=== PATIENT | female | born 1970 | race African-American/Black ===

== ENCOUNTER 2020-08-27 16:42 | Outpatient (REF) | payer MEDICARE, MEDICAID, SELFPAY ==
--- NOTE | 2020-08-27 16:46 | XR_ITS ---
EXAMINATION: XR RIBS, LEFT CLINICAL INFORMATION: Chest pain COMPARISON: None TECHNIQUE: Frontal view chest and 3 views left ribs are obtained for a total of 4 views. FINDINGS: There is no visible rib fracture or rib destructive process. The lungs are clear. There is no pneumothorax, pleural reaction, airspace elevation, or effusion. The heart is normal in size. The costophrenic sulci are clear. The hilar and mediastinal contours and bony structures are unremarkable. XR/XR ribs LT min 3V w CXR1V IMPRESSION: Unremarkable examination.
== END 2020-08-27 16:43 | disposition home or self-care (01) ==
LOC: HO.HMGCX 16:42
PROVIDERS: Visit Provider Nurse Practitioner Family
DX: R07.89 Other chest pain (principal)
CPT/HCPCS: 71101

== ENCOUNTER 2021-01-08 09:48 | Outpatient (REF) | payer MEDICARE, MEDICAID, SELFPAY ==
--- NOTE | ~2021-01-08 | XR_ITS ---
EXAMINATION: RIGHT SHOULDER AND RIGHT HAND/WRIST CLINICAL INFORMATION: Pain COMPARISON: None TECHNIQUE: 3 views right hand and wrist. 3 views right shoulder FINDINGS: RIGHT SHOULDER: There is no visible acute fracture, dislocation or subluxation. The soft tissues are normal. RIGHT HAND/WRIST: There is no visible acute fracture, dislocation or subluxation. The PIP, DIP and MCP joints are normal. The soft tissues are normal. XR/XR hand RT min 3V IMPRESSION: Unremarkable right shoulder exam. Unremarkable right hand and wrist exam.
--- NOTE | ~2021-01-08 | XR_ITS ---
EXAMINATION: RIGHT SHOULDER AND RIGHT HAND/WRIST CLINICAL INFORMATION: Pain COMPARISON: None TECHNIQUE: 3 views right hand and wrist. 3 views right shoulder FINDINGS: RIGHT SHOULDER: There is no visible acute fracture, dislocation or subluxation. The soft tissues are normal. RIGHT HAND/WRIST: There is no visible acute fracture, dislocation or subluxation. The PIP, DIP and MCP joints are normal. The soft tissues are normal. XR/XR shoulder RT min 2V IMPRESSION: Unremarkable right shoulder exam. Unremarkable right hand and wrist exam.
[2021-01-08 11:18] LABS: MANUAL DIFF FLAG NO
[2021-01-08 11:29] LABS: Prothrombin Time 12.3 SEC (10.8-13.0)
[2021-01-08 11:30] LABS: Basophils Absolute Auto 0.1 X10*3/uL (0.0-0.2); Basophils Percent Auto 0.9 % (0-2); Eosinophils Absolute Auto 0.6 X10*3/uL (0.0-0.4); Hematocrit 42.8 % (37-47); Hemoglobin 14.8 g/dl (12.0-16.0); Imm Gran Abs Auto 0.02 X10*3/uL (0.00-0.03); Imm Gran Pct Auto 0.2 % (0.0-0.4); Lymphocytes Absolute Auto 1.7 X10*3/uL (1.2-4.9); Lymphocytes Percent Auto 21.3 % (20-40); Mean Corpuscular HGB Conc 34.6 g/dl (31.0-35.0); Mean Corpuscular Hemoglobin 33.6 pg (27.0-33.0); Mean Corpuscular Volume 97.1 fL (80-98); Monocytes Absolute Auto 0.6 X10*3/uL (0.1-1.2); Monocytes Percent Auto 6.8 % (2-11); Neutrophils Absolute Auto 5.1 X10*3/uL (2.0-8.3); Neutrophils Percent Auto 63.8 % (45-73); Platelet Count 238 X10*3/uL (160-400); Red Blood Count 4.41 X10*6/uL (4.20-5.50); Red Cell Distribution Width 12.3 % (11.0-16.0)
[2021-01-08 11:31] LABS: Partial Thromboplastin Time 38.2 SEC (24.1-38.0)
[2021-01-11 03:47] LABS: HBc Num1 0.12 S/CO (0.00-0.79); HBsAGNum1 0.18 S/CO (0.00-0.99); Hepatitis B Core Antibody Nonreactive (Nonreactive); Hepatitis B Surface Antigen Negative (Negative); ~HepC Num1 0.07 S/CO (0.00-0.79); ~Hepatitis C Antibody Nonreactive (Nonreactive)
[2021-01-11 03:55] LABS: HBS Num1 81.51 mIU/mL (0-7.99); HIV AB/AG Nonreactive (Nonreactive); HIV Num 1 0.07 S/CO (0.00-0.99); ~Hepatitis B Surface Antibody REACTIVE (Nonreactive)
[2021-01-13 07:22] LABS: Hepatitis A Antibody IgM 0.18 Index (0-0.79); ~Hepatitis A Antibody IgM Nonreactive (Nonreactive)
== END 2021-01-08 09:49 | disposition home or self-care (01) ==
LOC: HO.HMGCX 09:48
PROVIDERS: PCP Internal Medicine; Visit Provider Hospitalist
DX: M25.511 Pain in right shoulder (principal); M79.641 Pain in right hand; Z11.3 Encounter for screening for infections with a predominantly sexual mode of transmission
CPT/HCPCS: 36415; 73030; 73130; 85025; 85610; 85730; 86704; 86706; 86709; 86803; 87340; 87389

== ENCOUNTER 2021-09-27 08:07 | Outpatient (REF) | payer MEDICARE, MEDICAID, SELFPAY ==
[2021-09-27 11:37] LABS: Hematocrit 46.4 % (37.0-47.0); Hemoglobin 15.4 g/dl (12.0-16.0); Mean Corpuscular HGB Conc 33.2 g/dl (31.0-35.0); Mean Corpuscular Hemoglobin 33.3 pg (27.0-33.0); Mean Corpuscular Volume 100.4 fL (80.0-98.0); Mean Platelet Volume 10.8 fL (9.4-12.3); Platelet Count 246 X10*3/uL (160-400); Red Blood Count 4.62 X10*6/uL (4.20-5.50); Red Cell Distribution Width 12.6 % (11.0-16.0)
[2021-09-27 12:03] LABS: Alanine Aminotransferase 13 U/L (0-31); Albumin Level 4.4 g/dL (3.5-5.0); Alkaline Phosphatase 117 U/L (39-117); Anion Gap 11 (12-20); Aspartate Amino Transferase 18 U/L (5-31); Bilirubin Total 0.5 mg/dL (0.0-1.0); Blood Urea Nitrogen 13 mg/dL (9-16); Calcium 9.9 mg/dL (8.4-10.2); Carbon Dioxide 30 mmol/L (22-29); Chloride 102 mmol/L (96-108); Cholesterol 209 mg/dL; Estimated Glomerular Filt Rate > 60; Glucose Fasting 124 mg/dL (60-99); HDL Cholesterol 63 mg/dL; LDL Cholesterol Calculated 134 mg/dl; Potassium 4.4 mmol/L (3.3-5.1); Sodium 139 mmol/L (135-145); Total Protein 7.3 g/dL (6.5-8.0); Triglycerides 60 mg/dL
[2021-09-27 12:13] LABS: TSH reflex Free T4 0.65 uIU/mL (0.32-4.0)
== END 2021-09-27 08:08 | disposition home or self-care (01) ==
LOC: HO.LAB 08:07
PROVIDERS: Absent Provider Surgery; PCP Internal Medicine; Visit Provider Internal Medicine
DX: Z00.00 Encounter for general adult medical examination without abnormal findings (principal)
CPT/HCPCS: 36415; 80053; 80061; 84443; 85027

== ENCOUNTER 2021-10-06 15:24 | Outpatient (REF) | payer MEDICARE, MEDICAID, SELFPAY ==
--- NOTE | ~2021-10-06 | XR_ITS ---
EXAMINATION: XR HAND, RIGHT CLINICAL INFORMATION: M79.641 - Pain in right hand COMPARISON: None TECHNIQUE: PA, lateral, and oblique views of the right hand. FINDINGS: Normal bony mineralization. Mild negative ulnar variance. Punctate corticated ossicle at tip ulnar styloid. There is no acute or healing fracture, dislocation, or destructive process. No focal joint narrowing or erosive changes. XR/XR hand RT 2V IMPRESSION: No fracture, dislocation, or arthropathy.
== END 2021-10-06 15:25 | disposition home or self-care (01) ==
LOC: HO.XRAY 15:24
PROVIDERS: PCP Internal Medicine; Visit Provider Internal Medicine
DX: M79.641 Pain in right hand (principal)
CPT/HCPCS: 73120

== ENCOUNTER 2024-02-12 09:32 | Outpatient (AMB) | payer MEDICARE, MEDICAID, SELFPAY ==
--- OUTSIDE RECORDS SUMMARY | 2024-02-12 09:33 | XMS_ITS | Continuity of Care Document ---
Author Organization [facility] ter Address [address] [place] [address]- Care Team Providers Care Musical Instruments Assembler Name Role Phone Emma Wick MD Primary Care Physician Encounter [facility] [place] Date(s): 11/27/21 - 11/28/[address] [address]- Encounter Diagnosis Thumb pain(Final) - 11/28/21 ACL (anterior cruciate ligament) rupture(Final) - 11/28/21 Discharge Disposition: A-D/C Home Attending Physician: Alexandria Wild MD Admitting Physician: Alexandria Wild MD Referring Physician: Not on Staff, Referring MD Allergies, Adverse Reactions, Alerts Substance Reaction Severity Status aspirin rash Active Valtrex rash Active Latex rash Active NSAIDs Active Immunizations Given and Recorded Vaccine Date Status Refusal Reason Measles/Mumps/Rubella Virus Vaccine 1 02/14/08 Giv en Measles/Mumps/Rubella Virus Vaccine 10/02/07 Given 1Admin Note: mmr#2 Medications Albuterol/Ipratropium Inhaler Refills 0, Maintenance, 01/27/17 15:43:27 Start Date: 01/27/17 Status: Ordered Marijuana Marijuana, Refills 0, Maintenance, 02/05/19 12:44:11 EDT, Compound Start Date: 02/05/19 Status: Ordered Oxycodone = 5 mg, By Mouth, Every 4 hours, PRN Pain , Moderate, 0 Refills, Maintenance, 12/14/20 8:28:00 EDT,Partial fill upon patient request if the prescription is for a schedule II opioid drug. Start Date: 12/14/20 Status: Ordered Symbicort 80mcg/4.5mcg Inhaler 2, puffs, Inhalation, 2 times a day, Refills 0, Maintenance, 01/27/17 15:43:46 Start Date: 01/27/17 Status: Ordered Problem List Condition Effective Dates Status Health Status Inform ant Anxiety(Confirmed) Active Asthma(Confirmed) Active Asthma(Confirmed) Active Cannabis use, uncomplicated(Confirmed) Active HLD (hyperlipidemia)(Confirmed) Active Nicotine dependence(Confirmed) Active OCD (obsessive compulsive disorder)(Confirmed) Active PTSD (post-traumatic stress disorder)(Confirmed) Active Depression, major, recurrent(Confirmed) Active 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 Pain primarily in joints of thumb. Also, pain in right knee x 3 days; no known traumatic injury.; Reason:Pain; with Pain; Clinical Question(s): Fracture; Special Instructions: This is a protocol film and r adiologist should call any findings to the Charge Nurse COMPARISON: None. FINDINGS: There is no evidence of acute or healing fracture, dislocation or bone lesion. No arthritic changes. No osteochondral defects or intra-articular loose bodies. Small suprapatellar joint effusion. Surgical clips superior medial to knee. IMPRESSION: No acute osseous abnormality. Small suprapatellar joint effusion. WSN: [id number] Ordering Physician: Jacquelyn Diaz Dictated By: Juliano Peralta MD Dictated Date/Time: 11/27/21 8:39 pm Reviewed By: Juliano Peralta MD Signed By: Juliano Peralta MD Signed Date/Time: 11/27/21 8:39 pm Transcribed By: NIVIA Transcribed Date/Time: 11/27/21 8:38 pm * Exam Date Time Procedure Performing Provider Status 11/27/21 8:20 PM Hand Min 3 Views Right Aarti Siegel Auth (Verified) Notes: (Hand Min 3 Views Right) Reason For Exam: with Pain;Pain RESULT: Hand Min 3 Views Right Hand Min 3 Views Right CLINICAL INDICATION: Hx of Present Illness: Patient reports right hand pain x 3 months; no known traumatic injury. Pain primarily in joints of thumb. Also, pain in right knee x 3 days; no known traumatic injury.; Reason: Pain; with Pain; Clinical Question(s): Fracture; Special Instructions: This renu protocol film and radiologist should call any findings to the Charge Nurse COMPARISONS: None TECHNIQUE: AP, lateral and oblique views of the right hand were obtained. FINDINGS: There is no fracture or dislocation. Normal radiocarpal alignment is maintained. Carpal joint spaces and bone contours are normal. MCP and IP joint spaces are maintained. No periarticular calcifications or erosions. No retained radiodense foreign body. IMPRESSION: No abnormalities are identified. No fracture or dislocation. No arthritic changes. WSN: [id number] Ordering Physician: Jacquelyn Diaz Dictated By: Efrain Tenorio MD Dictated Date/Time: 11/27/21 8:39 pm Reviewed By: Efrain Tenorio MD Signed By: Efrain Tenorio MD Signed Date/Time: 11/27/21 8:39 pm Transcribed By: NIVIA Transcribed Date/Time: 11/27/21 8:38 pm Vital Signs Most recent to oldest [Reference Range]: 1 2 3 Weight 57 kg (11/27/21 7:16 PM) Oxygen Saturation [94-100 %] 100 % (11/28/21 2:42 AM) 99 % (11/28/21 12:36 AM) 100 % (11/27/21 10:30 PM) Pulse Rate [55-90 bpm] 79 bpm (11/28/21 2:42 AM) 92 bpm *H* (11/28/21 12:36 AM) 95 bpm *H* (11/27/21 10:30 PM) Blood Pressure [90-138/55-84 mm Hg] 137/86mm Hg (11/28/21 2:42 AM) 134/88mm Hg (11/28/21 12:36 AM) 135/70mm Hg (11/27/21 10:30 PM) Respiratory Rate [16-30 br/min] 16 br/min (11/27/21 7:16 PM) Temperature [96.8-100.4 DegF] 97.7 DegF (11/28/21 2:42 AM) 97.7 DegF (11/28/21 12:36 AM) 97.9 DegF (11/27/21 10:30 PM) Mode of Delivery (Oxygen) Room air (11/28/21 12:36 AM) Room air (11/27/21 10:30 PM) Room air (11/27/21 8:30 PM) Blood pressure sites Arm, left (11/28/21 2:42 AM) Arm, right (11/28/21 12:36 AM) Arm, right (11/27/21 10:30 PM) Temperature Route Oral (11/28/21 2:42 AM) Oral (11/28/21 12:36 AM) Oral (11/27/21 10:30 PM) Dry Weight 57 kg (11/27/21 7:16 PM) Social History Social History Type Response Smoking Status Current every day ramu dennis entered on: 11/20/17 Sex Medical Equipment Implanted Date:02/09/17Target Site:Unknown Description Quantity MRI Company Model GRAFT BONE BMP INFUSE MEDIUM - MTRN ([id number]) 1 [employer] Unknown WHIT:No Information Assigning Authority: FDA
--- OUTSIDE RECORDS SUMMARY | 2024-02-12 09:33 | XMS_ITS | Continuity of Care Document ---
Author Organization [facility] ter Address [address] [place] [address]- Care Team Providers Care Nursing Specialist Name Role Phone Emma Wick MD Primary Care Physician [phone] Encounter [facility] [place] Date(s): 10/28/21 - 10/28/[address] [address]- Encounter Diagnosis Pharyngitis(Final) - 10/28/21 Bilateral conjunctivitis(Final) - 10/28/21 Discharge Disposition: A-D/C Home Attending Physician: Griselda Rivas MD Admitting Physician: Griselda Rivas MD Referring Physician: Not on Staff, Referring MD Allergies, Adverse Reactions, Alerts Substance Reaction Severity Status aspirin rash Active Valtrex rash Active Latex rash Active Immunizations Given and Recorded Vaccine Date Status Refusal Reason Measles/Mumps/Rubella Virus Vaccine 1 02/14/08 Giv en Measles/Mumps/Rubella Virus Vaccine 10/02/07 Given 1Admin Note: mmr#2 Medications Albuterol/Ipratropium Inhaler Refills 0, Maintenance, 01/27/17 15:43:27 Start Date: 01/27/17 Status: Ordered erythromycin 0.5% ophthalmic ointment 0.5 inches, Eyes, Both, 4 times a day, for 5 days, # 3.5 Gm, 0 Refills, Acute 11/02/21 5:45:00 EDT,10/28/21 5:45:00 EDT, Ophth Ointment, Partial fill upon patient request if the prescription is for a schedule II opioid drug. Start Date: 10/28/21 Stop Date: 11/02/21 Status: Ordered Marijuana Marijuana, Refills 0, Maintenance, [...] mptom disorder with predominant pain(Confirmed) Active Results Orders for Microbiology Reports Name Date Group A Strep Screen and Culture 10/28/21 Microbiology Reports TEST:Group A Strep Screen and Culture STATUS:Unauthenticated BODY SITE: SOURCE:THROAT COLLECTED DATE/TIME:10/28/21 4:21 AM Group A Strep Screen and Culture SPECIMEN DESCRIPTION : THROAT SWAB SPECIAL REQUESTS : NONE DIRECT EXAM : RAPID GROUP A RESULT IS NEGATIVE, REFER TO CULTURE RESULT. 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 LUNGS AND PLEURA: Clear lungs. Normal pulmonary vascularity. No pleural effusion. No pneumothorax. HEART, MEDIASTINUM AND SHANE: Heart is normal in size. Normal mediastinal and hilar contour. BONES AND SOFT TISSUES: No acute abnormality. There are surgical clips in the right upper quadrant. IMPRESSION: No evidence of acute abnormality. WSN: [id number] Ordering Physician: Rosalino Carter Dictated By: Efrain Lowery MD Dictated Date/Time: 10/28/21 7:38 am Reviewed By: Efrain Lowery MD Signed By: Efrain Lowery MD Signed Date/Time: 10/28/21 7:38 am Transcribed By: CSZayra Transcribed Date/Time: 10/28/21 7:37 am Vital Signs Most recent to oldest [Reference Range]: 1 2 3 Oxygen Saturation [94-100 %] 97 % (10/28/21 6:57 AM) 96 % (10/28/21 3:38 AM) 98 % (10/28/21 1:59 AM) Pulse Rate [55-90 bpm] 88 bpm (10/28/21 6:57 AM) 94 bpm *H* (10/28/21 3:38 AM) 124 bpm *H* (10/28/21 1:59 AM) Blood Pressure [90-138/55-84 mm Hg] 99/72mm Hg (10/28/21 6:57 AM) 119/69mm Hg (10/28/21 3:38 AM) 150/98mm Hg *H* (10/28/21 1:59 AM) Respiratory Rate [16-30 br/min] 16 br/min (10/28/21 6:57 AM) 20 br/min (10/28/21 3:38 AM) 20 br/min (10/28/21 1:59 AM) Temperature [96.8-100.4 DegF] 97.9 DegF (10/28/21 3:38 AM) 97.4 DegF (10/28/21 1:59 AM) Mode of Delivery (Oxygen) Room air (10/28/21 6:57 AM) Room air (10/28/21 3:38 AM) Room air (10/28/21 1:59 AM) Blood pressure sites Arm, left (10/28/21 3:38 AM) Arm, right (10/28/21 1:59 AM) Temperature Route Oral (10/28/21 3:38 AM) Oral (10/28/21 1:59 AM) Social History Social History Type Response Smoking Status Current every day ramu dennis entered on: 11/20/17 Sex Medical Equipment Implanted Date:02/09/17Target Site:Unknown Description Quantity MRI Company Model GRAFT BONE BMP INFUSE MEDIUM - MTRN ([id number]) 1 [employer] Unknown WHIT:No Information Assigning Authority: FDA
--- OUTSIDE RECORDS SUMMARY | 2024-02-12 09:33 | XMS_ITS | Continuity of Care Document ---
Author Organization [facility] ter Address [address] [place] [address]- Care Team Providers Care Cow Trimmer Name Role Phone Emma Wick MD Primary Care Physician [phone] [id number] - 02/06/[address] [address]- Discharge Disposition: A-D/C Walkout Attending Physician: Not on Staff, Attending MD Admitting Physician: Not on Staff, Admitting MD Referring Physician: Not on Staff, Referring [...] sy mptom disorder with predominant pain(Confirmed) Active Vital Signs Most recent to oldest [Reference Range]: 1 Oxygen Saturation [94-100 %] 98 % (02/06/21 6:50 AM) Pulse Rate [55-90 bpm] 107 bpm *H* (02/06/21 6:50 AM) Blood Pressure [90-138/55-84 mm Hg] 130/ 76mm Hg (02/06/21 6:50 AM) Respiratory Rate [16-30 br/min] 20 br/mi n (02/06/21 6:50 AM) Temperature [96.8-100.4 DegF] 98.8 DegF (02/06/21 6:50 AM) Mode of Delivery (Oxygen) Room air (02/06/21 6:50 AM) Blood pressure sites Arm, left (02/06/21 6:50 AM) Temperature Route Oral (02/06/21 6:50 AM) Social History Social History Type Response Smoking Status Current every day ramu dennis entered on: 11/20/17 Sex Medical Equipment Implanted Date:02/09/17Target Site:Unknown Description Quantity MRI Company Model GRAFT BONE BMP INFUSE MEDIUM - MTRN ([id number]) 1 [employer] Unknown WHIT:No Information Assigning Authority: FDA
--- OUTSIDE RECORDS SUMMARY | 2024-02-12 09:34 | XMS_ITS | Continuity of Care Document ---
Author Organization [facility] ter Address [address] [place] [address]- Care Team Providers Care Product Responsibility Liaison Name Role Phone Emma Wick MD Primary Care Physician Encounter [facility] [place] Date(s): 03/07/22 - 03/07/[address] [address]- Discharge Disposition: A-D/C Home Attending Physician: Josep Melendrez DO Admitting Physician: Josep Melendrez DO Referring Physician: Not on Staff, Referring MD [...] opioid drug. Start Date: 12/14/20 Status: Ordered oxyCODONE 5 mg oral tablet 5 mg, Tablet, By Mouth, Once, Routine, 03/07/22 12:00:00 EDT, Stop date 03/07/22 12:00:00 EDT Start Date: 03/07/22 Stop Date: 03/07/22 Status: Completed Symbicort 80mcg/4.5mcg Inhaler 2, puffs, Inhalation, 2 [...] Exam Date Time Procedure Performing Provider Status 03/07/22 11:57 AM Wrist Comp Min 3 Views Right Do , Larry ; Auth (Verified) Notes: (Wrist Comp Min 3 Views Right) Reason For Exam: with Pain;Trauma RESULT: Wrist Comp Min 3 Views Right Examination: Right wrist performed on 03/07/2022. History: Hx of Present Illness: pt c o lower back pain, right knee pain and bilateral wrist pain, sp mechanical trip and fall, pt denies lightheadedness dizziness prior to fall, denies hitting head denies loc. no deformities noted to wrists, hx lower back surgery; Reason: Trauma; with Pain; Clinical Question(s): Fracture Findings: Frontal, oblique, lateral, and scaphoid views of the right wrist are submitted. No fractures or dislocations are demonstrated. The soft tissues are unremarkable. IMPRESSION: There is no acute osseous abnormality. WSN: [id number] Ordering Physician: Josep Melendrez Dictated By: Jie Sykes MD Dictated Date/Time: 03/07/22 12:04 p Reviewed By: Jie Sykes MD Signed By: Jie Sykes MD Signed Date/Time: 03/07/22 12:04 pm Transcribed By: NIVIA Transcribed Date/Time: 03/07/22 12:04 pm * Exam Date Time Procedure Performing Provider Status 03/07/22 11:57 AM Wrist Comp Min 3 Views Left Do , Larry; Auth (Verified) Notes: (Wrist Comp Min 3 Views Left) Reason For Exam: with Pain;Trauma RESULT: Wrist Comp Min 3 Views Left Examination: Left wrist performed on 03/07/2022. History: Hx of Present Illness: pt c o lower back pain, right knee pain and bilateral wrist pain, sp mechanical trip and fall, pt denies lightheadedness dizziness prior to fall, denies hitting head denies loc. no deformities noted to wrists, hx lower back surgery; Reason: Trauma; with Pain; Clinical Question(s): Fracture Findings: Frontal, oblique, lateral, and scaphoid views of the left wrist are submitted. No fractures or dislocations are demonstrated. Soft tissue swelling is noted. IMPRESSION: Soft tissue swelling. There is no acute osseous abnormality. WSN: [id number] Ordering Physician: Josep Melendrez Dictated By: Jie Sykes MD Dictated Date/Time: 03/07/22 12:03 p Reviewed By: Jie Sykes MD Signed By: Jie Sykes MD Signed Date/Time: 03/07/22 12:03 pm Transcribed By: NIVIA Transcribed Date/Time: 03/07/22 12:02 pm * Exam Date Time Procedure Performing Provider Status 03/07/22 11:57 AM Knee 3 Views Right Do , Larry; Auth ( Verified) Notes: (Knee 3 Views Right) Reason For Exam: with Pain;Trauma RESULT: Knee 3 Views Right Examination: Right knee performed on 03/07/2022. History: Hx of Present Illness: pt c o lower back pain, right knee pain and bilateral wrist pain, sp mechanical trip and fall, pt denies lightheadedness dizziness prior to fall, denies hitting head denies loc. no deformities noted to wrists, hx lower back surgery; Reason: Trauma; with Pain; Clinical Question(s): Fracture; Special Instructions: Patella ([place] View) Findings: Frontal, lateral, and sunrise patellar views of the right knee are compared to a prior study dated 11/27/2021. No fractures or dislocations are demonstrated. There is no joint effusion. IMPRESSION: There is no acute osseous abnormality. WSN: [id number] Ordering Physician: Josep Melendrez Dictated By: Jie Sykes MD Dictated Date/Time: 03/07/22 11:59 a Reviewed By: Jie Sykes MD Signed By: Jie Sykes MD Signed Date/Time: 03/07/22 11:59 am Transcribed By: NIVIA Transcribed Date/Time: 03/07/22 11:58 am Vital Signs Most recent to oldest [Reference Range]: 1 2 Height 160 cm (03/07/22 9:44 AM) Weight 54.5 kg (03/07/22 9:44 AM) Oxygen Saturation [94-100 %] 98 % (03/07/22 9:44 AM) Pulse Rate [55-90 bpm] 100 bpm *H* (03/07/22 9:44 AM) Body Mass Index [18.5-24.99] 21.29 (03/07/22 9:44 AM) Blood Pressure [90-138/55-84 mm Hg] 149/ 90mm Hg *H* (03/07/22 9:44 AM) Respiratory Rate [16-30 br/min] 15 br/mi n *L* (03/07/22 11:10 AM) 16 br/min (03/07/22 9:44 AM) Temperature [96.8-100.4 DegF] 99.1 DegF (03/07/22 9:44 AM) Mode of Delivery (Oxygen) Room air (03/07/22 9:44 AM) Temperature Route Oral (03/07/22 9:44 AM) Weight Obtained Via Patient/family state d (03/07/22 9:44 AM) Social History Social History Type Response Smoking Status Current every day ramu dennis entered on: 11/20/17 Sex Medical Equipment Implanted Date:02/09/17Target Site:Unknown Description Quantity MRI Company Model GRAFT BONE BMP INFUSE MEDIUM - MTRN ([id number]) 1 [employer] Unknown WHIT:No Information Assigning Authority: FDA
--- OUTSIDE RECORDS SUMMARY | 2024-02-12 09:34 | XMS_ITS | Continuity of Care Document ---
Author Organization [facility] ter Address [address] [place] [address]- Care Team Providers Care Valve Repairer Reclamation Name Role Phone Emma Wick MD Primary Care Physician [place] [facility] [place] - 05/26/[address] [address] Attending Physician: Eunice Parmar MD Allergies, Adverse Reactions, Alerts Substance Reaction [...] Date: 01/27/17 Status: Ordered Problem List Condition Confirmation Course Effective Dates Status H ealth Status Informant Anxiety Confirmed Active Asthma Confirmed Active Asthma Confirmed Active Cannabis use, uncomplicated Confirmed Active HLD (hyperlipidemia) Confirmed Active Nicotine dependence Confirmed Active OCD (obsessive compulsive disorder) Confirmed Active PTSD (post-traumatic stress disorder) Confirmed Active Depression, major, recurrent Confirmed Active 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 Confirmed Active Social History Social History Type Response Smoking Status Current every day ramu dennis entered on: 11/20/17 Sex Implantable Device List Procedure Provider Procedure Date Device Type Site Fusion Lumbar Anterior Unknown 02/09/17 Unknown Un known Device Identifier Serial Number Lot or Batch Number Manufacturing Date Expiration Date Distinct Identification Code MRI Safety Implantable Status Assigning Authority Unknown [id number] AAB Unknown 04/29/18 Unknown Unknown Active Unknown Patient Care team information Personnel Name: Emma Wick MD Address: Address: [address] [place], [place] [address]
--- OUTSIDE RECORDS SUMMARY | 2024-02-12 09:34 | XMS_ITS | Continuity of Care Document ---
Author Organization [facility] ter Address [address] [place] [address]- Care Team Providers Care Intelligence Officer Basic Name Role Phone Emma Wick MD Primary Care Physician Encounter [facility] [place] [facility] R [id number] Date(s): 08/03/22 - 09/25/[address] [address] Attending Physician: Neville Haq MD Allergies, Adverse Reactions, Alerts Substance Reaction Severity Status acetaminophen Skin rash Active aspirin rash Active Valtrex rash Active Latex rash Active NSAIDs Active Immunizations Given and Recorded Vaccine Date Status Refusal Reason Measles/Mumps/Rubella Virus Vaccine 1 02/14/08 Giv en Measles/Mumps/Rubella Virus Vaccine 10/02/07 Given 1Admin Note: mmr#2 Medications Albuterol/Ipratropium Inhaler Refills 0, Maintenance, 01/27/17 15:43:27 Start Date: 01/27/17 Status: Ordered naproxen 500 mg oral tablet 1 tablet = 500 mg, By Mouth, 0 Refills, Maintenance, 07/04/22 14:48:00 EST, Partial fill upon patient request if the prescription is for a schedule II opioid drug. Start Date: 07/04/22 Status: Ordered Symbicort 80mcg/4.5mcg Inhaler 2, puffs, [...] MRI Safety Implantable Status Assigning Authority Unknown [id number] AAB Unknown 04/29/18 Unknown Unknown Active Unknown Patient Care team information Care Team Personnel Name: Emma Wick MD Position: [facility] Physician (General Medicine) Member Role: PCP Address: Address: [address] Name: Malgorzata Islas RN Position: [facility] RN Member Role: Primary Care Nurse Care Team Related Persons Name: KANWAL FERREIRA Address: home [address] [place] [address] Name: DIANE VELEZ Address: home [address] [address]
--- NOTE | 2024-02-12 09:51 | AM.OFFWIN_ITS ---
Intake Vital Signs 02/12/24 09:54 Height 5 ft 3 in Weight 149 lb 6 oz BMI 26.5 BP 122/70 Blood Pressure Location Lt brachial Position Sitting Pulse 91 Pulse Source Pulse Oximeter Temp 98 F Temp Source Oral Pulse Oximetry (%) 99 Oxygen Delivery Method Room Air Intake Visit Reasons: EP shoulder/?Dislocation Intake Note: Pt is here today for Rt shoulder pain. pt states she cracked her neck 4 M ago and felt a pop and is unable to lift rt arm. Patient Tobacco Use Status: Never used Tobacco Allergies aspirin [ASPIRIN] Allergy (Unknown, Verified 02/12/24 09:55) HIVES latex [LATEX] Allergy (Unknown, Verified 02/12/24 09:55) HIVES valacyclovir [Valtrex] Allergy (Unknown, Verified 02/12/24 09:55) Unknown Aspir-81 Allergy (Unknown, Uncoded 02/12/24 09:55) Unknown Latex Allergy (Unknown, Uncoded 02/12/24 09:55) Unknown latex Allergy (Unknown, Uncoded 02/12/24 09:55) Unknown Do you need a note to return to daycare/school/sports/work: No HPI HPI Comments History of Present Illness Details Patient presents to the walk-in today for sick visit Complaining of right shoulder pain x4 months States has been taking [id number] medications with some improvement Pain with movement and tender to palpation [facility] Medical History (Updated 02/12/24 @ 10:51 by Emma Baeza APRN, CENTRAL OFFICE INSPECTOR) Annual physical exam Mild asthma Palmoplantar pustulosis Sciatica Bipolar disorder Lumbar spinal stenosis Surgical History H/O colonoscopy Family History Father No problems noted. Mother No problems noted. Social History Patient Tobacco Use Status: Never used Tobacco Review of Systems Const All systems reviewed & are unremarkable except as noted in HPI and below Physical Exam Vital Signs: Last Vital Signs Temp 98 F 02/12/24 09:54 Pulse 91 02/12/24 09:54 BP 122/70 02/12/24 09:54 Pulse Ox 99 02/12/24 09:54 Oxygen Delivery Method Room Air 02/12/24 09:54 BMI result Body Mass Index 26.5 General: awake, alert, oriented. Answers questions appropriately. Fully engaged in examination. Skin: warm, dry, intact HEENT: Normocephalic. Hearing intact. Cardiac: External chest normal in appearance. Respiratory: No cough, audible wheezing or stridor. Abdomen: without gross distension. MS: No obvious swelling or deformities. Right shoulder: No pain with cross body reach. Pain with overhead and behind the back reach. Negative empty can. Pain with internal external rotation. Neurological: Oriented to person, place, time and situation. Thought process intact. No gait abnormalities appreciated. Psychiatric: Appropriate mood and affect. Good judgment and insight. Results Reviewed Results Reviewed: Right shoulder x-ray ordered and independently reviewed: No fracture dislocation Assessment & Plan Assessment & Plan (1) Right shoulder pain: Code(s): M25.511 - Pain in right shoulder Qualifiers: Chronicity: acute Qualified Code(s): M25.511 - Pain in right shoulder (2) Painful arc syndrome of right shoulder: Code(s): M75.101 - Unspecified rotator cuff tear or rupture of right shoulder, not specified as traumatic Plan X-ray right shoulder ordered and independently reviewed: No fracture or dislocation Follow-up with [facility]. She is a current patient there and does not require referral Naproxen 375 mg p.o. b.i.d. as needed. Patient advised on cautions for use. Do not take with any other nonsteroidal anti-inflammatory medications Follow up with PCP or return here for any new or worsening symptoms Orders: Orders XR shoulder RT min 2V Today M25.511 - Pain in right shoulder Medications: New naproxen 375 mg PO BID PRN 30 tabs 0RF pain Coding Level of Care Code Est Pt Level 4 (58996) Diagnoses Acute pain of right shoulder M25.511 Chronicity: acute Painful arc syndrome of right shoulder M75.101
[2024-02-12 09:54] VITALS: BP 122/70; PULSE 91; TEMP 36.6; O2SAT 99; BMI 26.5
== END 2024-02-12 10:31 | disposition home or self-care (01) ==
PROVIDERS: PCP Internal Medicine; Visit Provider Registered Nurse Emergency
DX: M25.511 Pain in right shoulder (principal); M75.101 Unspecified rotator cuff tear or rupture of right shoulder, not specified as traumatic
CPT/HCPCS: 99214

== ENCOUNTER 2024-02-12 10:29 | Outpatient (REF) | payer MEDICARE, MEDICAID, SELFPAY ==
--- NOTE | ~2024-02-12 | XR_ITS ---
EXAMINATION: XR SHOULDER, RIGHT CLINICAL INFORMATION: Pain in the right shoulder COMPARISON: 01/08/2021 TECHNIQUE: 3 views of of the right shoulder. FINDINGS: The humeral head is well positioned over the intact glenoid. Glenohumeral joint space is normal: no arthritic deformity, fracture or subluxation. No calcium deposition within rotator cuff tendons. There is a 0.6 cm subcortical cyst of the superolateral humeral head. No suspicious-appearing bone lesions. Acromioclavicular joint is normal. The subacromial space is normal. There are no osteophytes projecting from the undersurface of the acromioclavicular joint. No hook-shaped acromion, os acromiale or subacromial enthesophyte. No osseous findings that would predispose to a subacromial impingement disorder. The right lung is normal. XR/XR shoulder RT min 2V IMPRESSION: * No acute abnormality. No fracture or malalignment at the right shoulder. * No evidence of calcific tendinitis. * There is a subcortical cyst of the superolateral humeral head. Note that in some patients, subcortical cystic changes can be associated with rotator cuff tendinopathy.
== END 2024-02-12 10:30 | disposition home or self-care (01) ==
LOC: HO.HMGCX 10:29
PROVIDERS: PCP Internal Medicine; Visit Provider Registered Nurse Emergency
DX: M25.511 Pain in right shoulder (principal)
CPT/HCPCS: 73030

== ENCOUNTER 2024-03-05 13:13 | Outpatient (AMB) | payer MEDICARE, MEDICAID, SELFPAY ==
[2024-03-05 13:15] VITALS: BP 122/74; PULSE 92; O2SAT 98; BMI 26.6
--- NOTE | 2024-03-05 13:15 | A.OFFPC_ITS ---
Vital Signs 03/05/24 13:15 Height 5 ft 3 in Weight 150 lb BMI 26.6 BP 122/74 Blood Pressure Location Rt brachial Position Sitting Pulse 92 Pulse Source Pulse Oximeter Pulse Oximetry (%) 98 Oxygen Delivery Method Room Air Intake Visit Reasons: Annual PE/Discuss labs Intake Note: Pt is here today for PE. Allergies aspirin [ASPIRIN] Allergy (Unknown, Verified 03/05/24 13:27) HIVES latex [LATEX] Allergy (Unknown, Verified 03/05/24 13:27) HIVES valacyclovir [Valtrex] Allergy (Unknown, Verified 03/05/24 13:27) Unknown Aspir-81 Allergy (Unknown, Uncoded 03/05/24 13:27) Unknown Latex Allergy (Unknown, Uncoded 03/05/24 13:27) Unknown latex Allergy (Unknown, Uncoded 03/05/24 13:27) Unknown Medication List - Last Reconciled 03/05/24 by Emma Wick MD naproxen 375 mg PO BID PRN Tobacco use date assessed: 03/05/24 Dental Screening Dental Screen Date: 03/05/24 Did you have a dental visit in the last 12 months?: No Did you have a dental problem in the last 6 months where you did not have access to dental care?: No Was dental information given to patient?: Patient declined HPI Annual PE/Discuss labs HPI Details Patient presents for physical [facility] Medical History Annual physical exam Mild asthma Palmoplantar pustulosis Sciatica Bipolar disorder Lumbar spinal stenosis Surgical History Hx of right knee surgery H/O colonoscopy Family History Father No problems noted. Mother No problems noted. Mother Diabetes Breast cancer Social History Housing: Apartment Patient Tobacco Use Status: Current someday Tobacco user Tobacco use type: Cigarette e-Cigarette/Vaping Use: Never Used service: No Current occupational status: disabled Cognitive needs: No Hearing needs: No Vision needs: No Questionnaire PHQ-9 Over the last 2 weeks, how often have you been bothered by any of the following problems? 1. Little interest or pleasure in doing things: several days 2. Feeling down, depressed, or hopeless: several days 3. Trouble falling or staying asleep, or sleeping too much: several days 4. Feeling tired or having little energy: several days 5. Poor appetite or overeating: more than half the days 6. Feeling bad about yourself - or that you are a failure or have let yourself or your family down: several days 7. Trouble concentrating on things, such as reading the newspaper or watching television: several days 8. Moving or speaking so slowly that other people could have noticed. Or the opposite - being so fidgety or restless that you have been moving around a lot more than usual: several days 9. Thoughts that you would be better off or of hurting yourself in some way: not at all Total score: 9 Depression Screening Interpretation: Negative Depression Screening Done: Yes Source: Developed by Drs. Winston Mclaughlin, Sonia Cast, Kojo Clement and colleagues, with an educational prabhjot from [employer]. Thrive Questionnaire Date Thrive assessed: 03/05/24 I am a: Patient What is your living situation today?: I choose not to answer this question Within the past 12 months, did the food you bought not last and you didn't have the money to get more?: Often true Within the past 12 months, did you worry whether your food would run out before you got money to buy more?: Often true Do you have trouble paying for medicines?: I choose not to answer this question Do you have trouble getting transportation to medical appointments?: Yes Do you have trouble paying your heating and electricity bill?: I choose not to answer this question Do you have trouble taking care of your child, family member or friend?: I choose not to answer this question Do you have trouble with day-to-day activities such as bathing, preparing meals, shopping, managing finances, etc.?: Yes Are you currently unemployed and looking for a job?: No Are you interested in more education?: No Please select the resources that you would like help with: Housing/Halfway, Food, Transportation and Care for elder or disabled Currently or been in a relationship where the following occur: I choose not to answer THRIVE Score: 3 AUDIT C Alcohol Use Questionnaire (AUDIT-C) 1. How often do you have a drink containing alcohol?: Never 3. How often do you have six or more drinks on one occasion?: Never Total Score: 0 LEEROY-7 AMB Questionnaire LEEROY-7 Date LEEROY - 7 assessed: 03/05/24 Feeling nervous, anxious, or on edge: 1 = Several days Not being able to stop or control worryin = Several days Worrying too much about different things: 1 = Several days Trouble relaxin = Several days Being so restless that it is hard to sit still: 0 = Not at all Becoming easily annoyed or irritable: 1 = Several days Feeling afraid as if something awful might happen: 1 = Several days Total LEEROY-7 score (0-4 normal; 5-9 mild; 10-14 moderate; 15-21 severe): 6 Source: Developed by Drs. Winston Mclaughlin, Sonia Cast, Kojo Clement and colleagues, with an educational prabhjot from [employer]. Review of Systems Const All systems reviewed & are unremarkable except as noted in HPI and below Eyes Reports no additional complaints ENT Reports no additional complaints Card Reports no additional complaints Resp Reports no additional complaints GI Reports no additional complaints Reports no additional complaints Physical exam (Primary Care) Vital Signs: Last Vital Signs Pulse 92 03/05/24 13:15 BP 122/74 03/05/24 13:15 Pulse Ox 98 03/05/24 13:15 Oxygen Delivery Method Room Air 03/05/24 13:15 BMI result Body Mass Index 26.6 Tobacco/Smoking Status: Tobacco use Status Tobacco use date assessed 03/05/24 03/05/24 13:32 Patient Tobacco Use Status Current someday Tobacco 03/05/24 13:32 Tobacco use type Cigarette 03/05/24 13:32 e-Cigarette/Vaping Use Never Used 03/05/24 13:32 PHQ-9: PHQ-9 Score PHQ-9: Total score 9 03/05/24 13:32 Depression Screening Interpretation: Negative Thrive Assessment: Date of Thrive Assessment Date Thrive assessed 03/05/24 03/05/24 13:32 Currently or been in a relationship where the following occur: I choose not to answer Const General: no acute distress HENMT Head: Yes normal to inspection Ears: hearing grossly normal bilaterally Face and sinus: Yes normal facial exam Mouth: Normal oral and palatal mucosa present Throat: Yes posterior oropharynx normal Eyes General: appearance normal, both eyes and all related structures Neck Neck: Yes supple Resp Effort & Inspection: normal respiratory effort Auscultation: clear to auscultation bilaterally Cardio Rhythm: regular rhythm Heart sounds: S1 normal heart sound present and S2 normal heart sound present GI Inspection: Yes normal to inspection Palpation (GI): Soft to palpation Percussion: Yes normal to percussion Auscultation: normal bowel sounds Assessment and Plan Assessment & Plan (1) Annual physical exam: Code(s): Z00.00 - Encounter for general adult medical examination without abnormal findings Plan: Well-balanced diet regular physical activity discussed with the patient. She will return for fasting blood work. 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 Panel Fast Today Z00.00 - Encounter for general adult medical examination without abnormal findings Complete Blood Count Auto Diff Today Z00.00 - Encounter for general adult medical examination without abnormal findings TSH reflex Free T4 Today Z00.00 - Encounter for general adult medical examination without abnormal findings HIV Ab/Ag Today Z00.00 - Encounter for general adult medical examination without abnormal findings Lipid Panel Today Z00.00 - Encounter for general adult medical examination without abnormal findings Hepatitis B,C Profile Today Z00.00 - Encounter for general adult medical examination without abnormal findings UA w Microscopic Today Z00.00 - Encounter for general adult medical examination without abnormal findings Coding Level of Care Code Est Pt Prev Care 40-64y(08470) Diagnoses Annual physical exam Z00.00
== END 2024-03-05 15:01 | disposition home or self-care (01) ==
PROVIDERS: PCP Internal Medicine; Visit Provider Internal Medicine
DX: Z00.00 Encounter for general adult medical examination without abnormal findings (principal)
CPT/HCPCS: 99396

== ENCOUNTER 2024-03-08 10:03 | Outpatient (REF) | payer MEDICARE, MEDICAID, SELFPAY ==
[2024-03-08 13:05] LABS: Appearance Urine Cloudy; Color Urine Yellow; Glucose Urine UA Negative (Negative); Leukocyte Esterase Urine Trace (Negative); Nitrite Urine Negative (Negative); PH 5.5 (5.0-9.0); UMIC TRIGGER UA YES; Urine Blood Negative (Negative); Urine Ketones Negative (Negative); Urine Protein Negative (Neg-Trace)
[2024-03-08 13:10] LABS: MANUAL DIFF FLAG NO
[2024-03-08 13:11] LABS: Bacteria Urine 4+ (None Seen); RBC Urine 0-2 /HPF (0-2)
[2024-03-08 13:14] LABS: Basophils Absolute Auto 0.1 X10*3/uL (0.0-0.2); Basophils Percent Auto 1.6 % (0-2); Eosinophils Percent Auto 14.2 % (0-4); Hematocrit 43.5 % (37.0-47.0); Hemoglobin 14.8 g/dl (12.0-16.0); Imm Gran Abs Auto 0.05 X10*3/uL (0.00-0.03); Imm Gran Pct Auto 0.7 % (0.0-0.4); Lymphocytes Absolute Auto 1.9 X10*3/uL (1.2-4.9); Lymphocytes Percent Auto 27.4 % (20-40); Mean Corpuscular Hemoglobin 32.6 pg (27.0-33.0); Mean Corpuscular Volume 95.8 fL (80.0-98.0); Mean Platelet Volume 10.3 fL (9.4-12.3); Monocytes Absolute Auto 0.5 X10*3/uL (0.1-1.2); Monocytes Percent Auto 7.1 % (2-11); Neutrophils Absolute Auto 3.4 x10*3/uL (2.0-8.3); Platelet Count 257 X10*3/uL (160-400); Red Blood Count 4.54 X10*6/uL (4.20-5.50); Red Cell Distribution Width 12.5 % (11.0-16.0)
[2024-03-08 13:35] LABS: Alanine Aminotransferase 19 U/L (0-31); Albumin Level 4.2 g/dL (3.5-5.0); Alkaline Phosphatase 111 U/L (39-117); Anion Gap 10 (12-20); Aspartate Amino Transferase 21 U/L (5-31); Bilirubin Total 0.8 mg/dL (0.0-1.0); Blood Urea Nitrogen 14 mg/dL (9-16); Calcium 9.8 mg/dL (8.4-10.2); Carbon Dioxide 28 mmol/L (22-29); Chloride 106 mmol/L (96-108); Cholesterol 224 mg/dL (<200); Estimated Glomerular Filt Rate > 60; Glucose Fasting 81 mg/dL (60-99); HDL Cholesterol 54 mg/dL (>40); LDL Cholesterol Calculated 151 mg/dL (<100); Potassium 3.9 mmol/L (3.3-5.1); Sodium 140 mmol/L (135-145); Total Protein 7.5 g/dL (6.5-8.0); Triglycerides 95 mg/dL (<150)
[2024-03-08 13:50] LABS: TSH reflex Free T4 1.07 uIU/mL (0.32-4.0)
[2024-03-10 04:18] LABS: HBS Num1 58.57 mIU/mL (0-7.99); HBc Num1 0.07 S/CO (0.00-0.79); HBsAGNum1 0.32 S/CO (0.00-0.99); HIV AB/AG Nonreactive (Nonreactive); HIV Num 1 0.05 S/CO (0.00-0.99); Hepatitis B Core Antibody Nonreactive (Nonreactive); Hepatitis B Surface Antigen Negative (Negative); ~HepC Num1 0.14 S/CO (0.00-0.79); ~Hepatitis B Surface Antibody REACTIVE (Nonreactive); ~Hepatitis C Antibody Nonreactive (Nonreactive)
== END 2024-03-08 10:04 | disposition home or self-care (01) ==
LOC: HO.HMGCLDS 10:03
PROVIDERS: PCP Internal Medicine; Visit Provider Internal Medicine
DX: Z00.00 Encounter for general adult medical examination without abnormal findings (principal)
CPT/HCPCS: 36415; 80053; 80061; 81001; 84443; 85025; 86704; 86706; 86803; 87340; 87389

== ENCOUNTER 2025-02-14 13:16 | Outpatient (AMB) | payer MEDICARE, MEDICAID, SELFPAY ==
[2025-02-14 13:36] VITALS: BP 102/68; PULSE 80; RESP 18; TEMP 36.6; O2SAT 98; BMI 27.1
--- NOTE | 2025-02-14 13:36 | A.OFFPC_ITS ---
Vital Signs 02/14/25 13:36 Height 5 ft 3 in Weight 153 lb BMI 27.1 BP 102/68 Blood Pressure Location Rt brachial Position Sitting Respiration 18 Pulse 80 Pulse Source Pulse Oximeter Temp 97.8 F Temp Source Oral Pulse Oximetry (%) 98 Oxygen Delivery Method Room Air Intake Visit Reasons: back pain Intake Note: Pt is here today for a sick visit. Pt c/o upper upper back pain on both sides. Allergies aspirin (ASPIRIN) Allergy (Unknown, Verified 02/14/25 13:45) HIVES latex (LATEX) Allergy (Unknown, Verified 02/14/25 13:45) HIVES valacyclovir (Valtrex) Allergy (Unknown, Verified 02/14/25 13:45) Unknown Aspir-81 Allergy (Unknown, Uncoded 02/14/25 13:45) Unknown Latex Allergy (Unknown, Uncoded 02/14/25 13:45) Unknown latex Allergy (Unknown, Uncoded 02/14/25 13:45) Unknown Medication List - Last Reconciled 02/14/25 by Emma Wick MD albuterol sulfate 90 mcg/actuation (Ventolin HFA) 2 puffs inhalation Q6H PRN baclofen 10 mg PO BEDTIME naproxen 375 mg PO BID PRN pravastatin 20 mg PO DAILY prednisone 10 mg PO DAILY Tobacco use date assessed: 02/14/25 Dental Screening Dental Screen Date: 02/14/25 HPI back pain HPI Details Pt c/o midback pain for 3 days, positional. Patient denies fever chills cough pleurisy nausea vomiting change in bowel habits, dysuria hematuria. Patient denies any injury but has been lifting her autistic 4-year-old grandson. [facility]LY [facility] Medical History Annual physical exam Mild asthma Palmoplantar pustulosis Sciatica Bipolar disorder Lumbar spinal stenosis Surgical History Hx of right knee surgery H/O colonoscopy Family History Father No problems noted. Mother No problems noted. Mother Diabetes Breast cancer Social History Housing: Apartment Patient Tobacco Use Status: Current everyday Tobacco user Tobacco use type: Cigarette Cigarettes Per Day: 2 e-Cigarette/Vaping Use: Never Used service: No Current occupational status: disabled Cognitive needs: No Hearing needs: No Vision needs: No Questionnaire PHQ-9 Over the last 2 weeks, how often have you been bothered by any of the following problems? 1. Little interest or pleasure in doing things: several days 2. Feeling down, depressed, or hopeless: several days 3. Trouble falling or staying asleep, or sleeping too much: several days 4. Feeling tired or having little energy: several days 5. Poor appetite or overeating: not at all 6. Feeling bad about yourself - or that you are a failure or have let yourself or your family down: not at all 7. Trouble concentrating on things, such as reading the newspaper or watching television: not at all 8. Moving or speaking so slowly that other people could have noticed. Or the opposite - being so fidgety or restless that you have been moving around a lot more than usual: several days 9. Thoughts that you would be better off or of hurting yourself in some way: not at all Total score: 5 Depression Screening Interpretation: Negative Depression Screening Done: Yes 79983 - PHQ-9 Billing: Yes Source: Developed by Drs. Winston Mclaughlin, Sonia Cast, Kojo Clement and colleagues, with an educational prabhjot from [employer]. Thrive Questionnaire Date Thrive assessed: 02/14/25 I am a: Patient What is your living situation today?: I have a steady place to live Within the past 12 months, did the food you bought not last and you didn't have the money to get more?: Never true Within the past 12 months, did you worry whether your food would run out before you got money to buy more?: Never true Do you have trouble paying for medicines?: No Do you have trouble getting transportation to medical appointments?: Yes Do you have trouble paying your heating and electricity bill?: No Do you have trouble taking care of your child, family member or friend?: No Do you have trouble with day-to-day activities such as bathing, preparing meals, shopping, managing finances, etc.?: Yes Are you currently unemployed and looking for a job?: No Are you interested in more education?: No Please select the resources that you would like help with: None Currently or been in a relationship where the following occur: No concerns reported THRIVE Score: 1 AUDIT C Alcohol Use Questionnaire (AUDIT-C) 1. How often do you have a drink containing alcohol?: Never Total Score: 0 LEEROY-7 AMB Questionnaire LEEROY-7 Date LEEROY - 7 assessed: 02/14/25 Feeling nervous, anxious, or on edge: 0 = Not at all Not being able to stop or control worryin = Several days Worrying too much about different things: 1 = Several days Trouble relaxin = Several days Being so restless that it is hard to sit still: 1 = Several days Becoming easily annoyed or irritable: 1 = Several days Feeling afraid as if something awful might happen: 0 = Not at all Total LEEROY-7 score (0-4 normal; 5-9 mild; 10-14 moderate; 15-21 severe): 5 Source: Developed by Drs. Winston Mclaughlin, Sonia Cast, Kojo Clement and colleagues, with an educational prabhjot from [employer]. LEEROY-7 Assessment Billing LEEROY-7 Assessment Tool: LEEROY-7 Assessment 32034 Review of Systems Const All systems reviewed & are unremarkable except as noted in HPI and below Eyes Reports no additional complaints ENT Reports no additional complaints Card Reports no additional complaints Resp Reports no additional complaints GI Reports no additional complaints Physical exam (Primary Care) Vital Signs: Last Vital Signs Temp 97.8 F 02/14/25 13:36 Pulse 80 02/14/25 13:36 Resp 18 02/14/25 13:36 BP 102/68 02/14/25 13:36 Pulse Ox 98 02/14/25 13:36 Oxygen Delivery Method Room Air 02/14/25 13:36 BMI result Body Mass Index 27.1 Tobacco/Smoking Status: Tobacco use Status Tobacco use date assessed 02/14/25 02/14/25 13:47 Patient Tobacco Use Status Current someday Tobacco 02/14/25 13:36 Tobacco use type Cigarette 02/14/25 13:36 e-Cigarette/Vaping Use Never Used 02/14/25 13:36 PHQ-9: PHQ-9 Score PHQ-9: Total score 5 02/14/25 13:47 Depression Screening Interpretation: Negative Thrive Assessment: Date of Thrive Assessment Date Thrive assessed 02/14/25 02/14/25 13:47 Currently or been in a relationship where the following occur: No concerns reported Const General: no acute distress HENMT Head: Yes normal to inspection Resp Effort & Inspection: normal respiratory effort Auscultation: clear to auscultation bilaterally Cardio Rhythm: regular rhythm Heart sounds: S1 normal heart sound present and S2 normal heart sound present GI Inspection: Yes normal to inspection Palpation (GI): Soft to palpation Percussion: Yes normal to percussion Auscultation: normal bowel sounds Back/Spine/Pelvis Other: Paraspinal tenderness in the lower thoracic region left more than right, straight leg rising 90 degrees bilaterally motor strength 5/5 bilaterally Results AMB Urinalysis, Automated UA Leukoctes 0 Gabriel/uL Last Edit by Jody Womack [facility] on 02/14/25 13:51 UA Nitrite Negative Last Edit by Jody Womack [facility] on 02/14/25 13:51 UA Urobilinogen 0.2 mg/dL Last Edit by Jody Womack [facility] on 02/14/25 13: 51 UA Protein 0 mg/dL Last Edit by Jody Womack [facility] on 02/14/25 13:51 UA pH 6.0 Last Edit by Jody Womack [facility] on 02/14/25 13:51 UA Blood 0 Gume/uL Last Edit by Jody Womack [facility] on 02/14/25 13:51 UA Specific [place]ablo 1.030 Last Edit by Jody Womack [facility] on 02/14/25 13 :51 UA Ketone Negative Last Edit by Jody Womack [facility] on 02/14/25 13:51 UA Bilirubin 0 mg/dL Last Edit by Jody Womack [facility] on 02/14/25 13:51 UA Glucose 0 mg/dL Last Edit by Jody Womack [facility] on 02/14/25 13:51 Results Reviewed Results Reviewed: Laboratory Last Values Urine pH (Auto) 6.0 02/14/25 13:49 Specific Diablo (Auto) 1.030 02/14/25 13:49 Urine Protein (Auto) 0 mg/dL 02/14/25 13:49 Glucose (UA)(Auto) 0 mg/dL 02/14/25 13:49 Urine Ketones (Auto) Negative 02/14/25 13:49 Urine Blood (Auto) 0 Gume/uL 02/14/25 13:49 Urine Nitrite (Auto) Negative 02/14/25 13:49 Urine Bilirubin (Auto) 0 mg/dL 02/14/25 13:49 Urine Urobilinogen (Auto) 0.2 mg/dL 02/14/25 13:49 Leukocyte Esterase (Auto) 0 Gabriel/uL 02/14/25 13:49 Coding Level of Care Code Est Pt Level 3 (03380) Diagnoses Hyperlipidemia E78.5 Mid back pain M54.9 Additional Codes LEEROY-7 Assessment Billing - LEEROY-7 Assessment Tool: LEEROY-7 Assessment 71492 ([id number]) PHQ-9 - 37917 - PHQ-9 Billing: Yes ([id number]) Assessment & Plan Assessment & Plan (1) Hyperlipidemia: Code(s): E78.5 - Hyperlipidemia, unspecified Category: Medical Plan: Continue pravastatin return for physical with a fasting labs before (2) Mid back pain: Code(s): M54.9 - Dorsalgia, unspecified Category: Medical Plan: For musculoskeletal mid back pain prednisone taper and baclofen prescribed and supportive care discussed with the patient Orders: Orders AMB Urinalysis Automated Today Z13.9 - Encounter for screening, unspecified Complete Blood Count Auto Diff 1 Month E78.5 - Hyperlipidemia, unspecified, Z00.00 - Encounter for general adult medical examination without abnormal findings TSH reflex Free T4 1 Month E78.5 - Hyperlipidemia, unspecified, Z00.00 - Encounter for general adult medical examination without abnormal findings Comprehensive [place]. Panel Fast 1 Month E78.5 - Hyperlipidemia, unspecified, Z00.00 - Encounter for general adult medical examination without abnormal findings Lipid Panel 1 Month E78.5 - Hyperlipidemia, unspecified, Z00.00 - Encounter for general adult medical examination without abnormal findings Medications: New prednisone Four tablets p.o. q.d. for 3 days then 3 tablets p.o. q.d. for 3 days then 2 tablets p.o. q.d. for 3 days then 1 tablet p.o. q.d. for 3 days 10 mg PO DAILY 30 tabs 0RF albuterol sulfate 90 mcg/actuation (Ventolin HFA) 2 puffs inhalation Q6H PRN 6.7 grams 3RF shortness of breath or wheezing baclofen 10 mg PO BEDTIME 20 tabs 0RF Refilled pravastatin 20 mg PO DAILY 90 tabs 3RF
== END 2025-02-14 14:13 | disposition home or self-care (01) ==
LOC: HO.HMCC 13:17
PROVIDERS: PCP Internal Medicine; Visit Provider Internal Medicine
DX: E78.5 Hyperlipidemia, unspecified (principal); M54.9 Dorsalgia, unspecified; Z13.9 Encounter for screening, unspecified

== ENCOUNTER → 2025-02-14 13:16 | Outpatient (BNVA) | payer MEDICARE, MEDICAID, SELFPAY | PROVIDERS: PCP Internal Medicine; Visit Provider Internal Medicine | DX: E78.5 Hyperlipidemia, unspecified (principal); M54.9 Dorsalgia, unspecified | CPT/HCPCS: 81003; 96127; 99212 ==

== ENCOUNTER 2025-03-16 01:51 | Emergency (ER) | payer MEDICARE, MEDICAID, SELFPAY ==
--- NOTE | ~2025-03-16 | XR_ITS ---
CLINICAL HISTORY: sob 1 view chest x-ray. Comparison: None provided Findings: The lungs appear clear. There is no consolidation, effusion, or pneumothorax. Cardiomediastinal silhouette is within normal limits. IMPRESSION: No acute cardiopulmonary abnormality. This document has been electronically signed by: Reid Jesus MD on 03/16/2025 02:51:54
[2025-03-16 01:59] VITALS: BP 125/80; PULSE 91; RESP 20; TEMP 36.6; O2SAT 95; BMI 26.6
--- NOTE | 2025-03-16 02:11 | ED.ASTHMA ---
HPI - Asthma General Chief Complaint: Asthma Stated Complaint: SOB Time Seen by Provider: 03/16/25 01:57 Source: patient Mode of arrival: ambulatory Limitations: no limitations History of Present Illness ED Provider: Josep LIN HPI Narrative: The patient is a 54-year-old female with history of asthma and tobacco dependence presenting to the ED for evaluation of 3 days of worsening shortness of breath and wheezing, increasing this evening and no longer responding to use of her rescue inhaler. The patient reports associated cough which is mostly dry but intermittently productive of light yellow sputum. The patient denies associated fever/chills, nausea, vomiting, chest pain, pleurisy, hemoptysis, abdominal pain, or recent sick contacts or recent trauma. Patient denies previous hospitalization or intubation secondary to asthma exacerbations. Related Data Previous Rx's ?Medication ?Instructions ?Recorded naproxen 375 mg tablet 375 mg PO BID PRN pain #30 tabs 02/12/24 albuterol sulfate 90 mcg/actuation 2 puff inhalation Q6H PRN 02/14/25 aerosol inhaler (Ventolin HFA) shortness of breath or wheezing #6.7 grams baclofen 10 mg tablet 10 mg PO BEDTIME #20 tabs 02/14/25 pravastatin 20 mg tablet 20 mg PO DAILY #90 tabs 02/14/25 prednisone 10 mg tablet 10 mg PO DAILY #30 tabs 02/14/25 acetaminophen 500 mg capsule 1,000 mg (2 x 500 mg) PO .q8 PRN 03/16/25 fever or pain #30 caps prednisone 20 mg tablet 60 mg (3 x 20 mg) PO DAILY 5 days 03/16/25 #15 tabs Allergies Allergy/AdvReac Type Severity Reaction Status Date / Time aspirin (ASPIRIN) Allergy Unknown HIVES Verified 03/16/25 02:00 latex (LATEX) Allergy Unknown HIVES Verified 03/16/25 02:00 valacyclovir (Valtrex) Allergy Unknown Unknown Verified 03/16/25 02:00 Aspir-81 Allergy Unknown Unknown Uncoded 02/14/25 13:45 Latex Allergy Unknown Unknown Uncoded 02/14/25 13:45 latex Allergy Unknown Unknown Uncoded 02/14/25 13:45 Review of Systems Review of Systems: Yes all other systems are reviewed and are negative PMFSH Past Medical History Medical History Annual physical exam Mild asthma Palmoplantar pustulosis Sciatica Bipolar disorder Lumbar spinal stenosis Surgical History Hx of right knee surgery H/O colonoscopy Family History Family History Father No problems noted. Mother No problems noted. Mother Diabetes Breast cancer Social History Social History Housing: Apartment Patient Tobacco Use Status: Current everyday Tobacco user Tobacco use type: Cigarette Cigarettes Per Day: 2 Smoked in Last 30 Days: No e-Cigarette/Vaping Use: Never Used Advance Directives: No Do you have a plan to hurt others: No Plan service: No Current occupational status: disabled Cognitive needs: No Hearing needs: No Vision needs: No Physical Exam Vital Signs: Vital Signs: Last Vital Signs Temp 97.9 F 03/16/25 01:59 Pulse 89 03/16/25 02:39 Resp 18 03/16/25 02:39 BP 125/80 03/16/25 01:59 Pulse Ox 95 03/16/25 01:59 O2 Del Method Room Air 03/16/25 01:59 BMI result Body Mass Index 26.6 CONSTITUTIONAL: The patient appears non-toxic, well nourished and in no acute distress. Vital signs as documented. HEAD: Atraumatic, normocephalic. EYES: EOMs grossly intact, pupils equal, conjunctiva clear, no exudate. ENT: Nares patent, no discharge. Airway patent, no audible stridor, visible mucosa is pink and moist without noted lesions. NECK: Trachea is midline, no obvious masses or gross abnormalities. CHEST: Symmetric movement, normal appearance. LUNGS: LS present with diffuse expiratory wheezes. Non-labored work of breathing at rest in the exam stretcher. CARDIAC: Regular Rhythm, S1/S2 appreciated, no murmurs, rubs or gallops. ABDOMEN: Abdomen soft and non-tender x4 quadrants, no palpable masses or organomegaly. : Deferred. EXTREMITIES: Normal tone, moves all extremities spontaneously without reported pain. No obvious acute injury or deformity noted. NEURO: Alert and oriented x3, CN II-XII appear grossly intact. Cerebellar Functioning grossly intact. No obvious sensory or motor deficits. Speech clear and appropriate. PSYCH: normal affect, appropriate eye contact, fluid speech, with appropriate response to questioning. No reported suicidality or homicidality. SKIN: Warm, dry, color appropriate, normal turgor. No rashes noted. Medications Administered Discontinued Medications Generic Name Dose Route Start Last Admin Trade Name Freq PRN Reason Stop Dose Admin Albuterol Sulfate 7.5 mg/ 10 mg 03/16/25 02:32 03/16/25 02:38 Albuterol Sulfate 2.5 mg INHALE 03/16/25 02:33 10 mg ONCE ONE Administration Magnesium Sulfate 2 gm in 50 mls @ 150 mls/hr 03/16/25 03:24 03/16/25 04:12 Magnesium Sulfate/H2o IV 03/16/25 03:43 Infused ONCE ONE Infusion Ketorolac Tromethamine 15 mg 03/16/25 03:21 03/16/25 03:28 Ketorolac Tromethamine 15 Mg/Ml Vial IVPUSH 03/16/25 03:22 15 mg ONCE ONE Administration Methylprednisolone Sodium Succinate 125 mg 03/16/25 02:10 03/16/25 03:07 Methylprednisolone Sod Succ 125 Mg/2 Ml Vial IVPUSH 03/16/25 02:11 125 mg ONCE ONE Administration Medical Decision Making Medical Decision Making MDM Narrative: 2:28 AM 03/16/2025 (Peter LIN): The patient is a 54-year-old female presenting to the ED for evaluation of worsening shortness of breath with cough intermittent productive of yellow sputum in the setting of known asthma and tobacco dependence. The patient in the ED is well-appearing, in no acute distress, but does have significant expiratory wheezing diffusely. The patient appears to have increased respiratory rate with sentences, but is able to speak in full sentences, not speaking in phrases or single word responses. The patient is vital signs are stable, afebrile, SpO2 95% on room air. The patient reports only smoking 2-3 cigarettes today. We will obtain chest x-ray, and the patient will be treated with Solu-Medrol and a DuoNeb. We will reassess following interventions. 2:57 AM 03/16/2025 (Peter LIN): The patient's chest x-ray shows no focal consolidation, no acute cardiopulmonary process. The patient's laboratory evaluation is reassuring, no leukocytosis, anemia, electrolyte abnormality, or JORDAN. Patient's viral swabs are pending. Patient received DuoNeb, patient's cough is now sounding much more productive. We will await viral swabs and reassess lung sounds, if improved patient will be discharged with a prednisone burst. 3:17 AM 03/16/2025 (Peter LIN): Patient's viral swab is negative for COVID, influenza, and RSV. The patient is moving more adequate air with respirations after DuoNeb, however has persistent wheezing. The patient has just now receiving her Solu-Medrol, we will add on magnesium sulfate, Toradol for inflammation and cough, and continue to monitor for improvement following interventions. Patient has an allergy to aspirin but reports she takes Excedrin. 4:23 AM 03/16/2025 (Peter LIN): Patient reports feeling markedly improved following Solu-Medrol, Toradol, and magnesium. The patient is producing more phlegm with subjectively less chest congestion. Patient will be discharged with prednisone. Admission/Observation Consideration of admission/observation: Escalation of care including admission/observation considered Lab Data 03/16/25 02:28 03/16/25 02:28 Labs: Lab Results 03/16/25 Range/Units 02:28 WBC 7.6 (4.8-10.8) X10*3/uL RBC 4.25 (4.20-5.50) X10*6/uL Hgb 13.9 (12.0-16.0) g/dl Hct 38.7 (37.0-47.0) % MCV 91.1 (80.0-98.0) fL MCH 32.7 (27.0-33.0) pg MCHC 35.9 H (31.0-35.0) g/dl RDW 12.4 (11.0-16.0) % Plt Count 228 (160-400) X10*3/uL MPV 10.0 (9.4-12.3) fL Immature Gran % (Auto) 0.1 (0.0-0.4) % Neut % (Auto) 47.5 (45-73) % Lymph % (Auto) 30.1 (20-40) % [place] % (Auto) 9.3 (2-11) % Eos % (Auto) 11.7 H (0-4) % Baso % (Auto) 1.3 (0-2) % Lymph # (Auto) 2.3 (1.2-4.9) X10*3/uL [place] # (Auto) 0.7 (0.1-1.2) X10*3/uL Eos # (Auto) 0.9 H (0.0-0.4) X10*3/uL Baso # (Auto) 0.1 (0.0-0.2) X10*3/uL Abs Immat Gran (auto) 0.01 (0.00-0.03) X10*3/uL Absolute Neuts (auto) 3.6 (2.0-8.3) x10*3/uL Absolute Nucleated RBC 0.000 (0.0-0.012) X10*3/uL Nucleated RBC % (auto) 0.0 (0.0-0.2) /100WBC Sodium 143 (135-145) mmol/L Potassium 3.5 (3.3-5.1) mmol/L Chloride 109 H (96-108) mmol/L Carbon Dioxide 24 (22-29) mmol/L Anion Gap 14 (12-20) BUN 13 (9-16) mg/dL Creatinine 0.67 (0.5-1.4) mg/dL Estim Creat Clear Calc 87.8 Estimated GFR > 60 Random Glucose 98 (60-115) mg/dL Calcium 9.2 D (8.4-10.2) mg/dL Total Bilirubin 0.6 (0.0-1.0) mg/dL AST 25 (5-31) U/L ALT 14 (0-31) U/L Alkaline Phosphatase 129 H (39-117) U/L Total Protein 7.1 (6.5-8.0) g/dL Albumin 4.1 (3.5-5.0) g/dL Influenza Type A (PCR) NEGATIVE (Negative) Influenza Type B (PCR) NEGATIVE (Negative) RSV RNA Qual (PCR) NEGATIVE (Negative) SARS-CoV-2 RNA (RT-PCR) NEGATIVE (Negative) Radiology Impression Discussion of test interpretation with radiology: I have reviewed the radiologist's reading. Radiologist Impression: CLINICAL HISTORY: sob 1 view chest x-ray. Comparison: None provided Findings: The lungs appear clear. There is no consolidation, effusion, or pneumothorax. Cardiomediastinal silhouette is within normal limits. IMPRESSION: No acute cardiopulmonary abnormality. This document has been electronically signed by: Reid Jesus MD on 03/16/2025 02:51:54 Discharge Plan Discharge Clinical Impression: Asthma with acute exacerbation Qualifiers: Asthma severity: unspecified severity Asthma persistence: unspecified Qualified Code(s): J45.901 - Unspecified asthma with (acute) exacerbation Patient Disposition: Home, Self-Care Instructions: Asthma (ED) Additional Instructions: Thank you for choosing [facility]'s Emergency Department for your care today. At this time there is no indication for admission to the hospital or continued ED observation, and it is safe to discharge you home. Your symptoms today were due to an acute exacerbation of your underlying asthma, thankfully however your symptoms did improve following a breathing treatment, steroid, and magnesium here in the ED. Please take prednisone as prescribed until it is finished. You should take alternating (staggered) doses of ibuprofen 600mg and Tylenol 1000mg every 4 hours as needed for any additional fever, cough, or pain. Please stay well hydrated and get plenty of rest. Please continue taking your other medications as prescribed and continue using your rescue inhaler as needed. Please follow up with your primary care physician for re-evaluation, additional management of your symptoms, and continued preventative care. If you do not have a primary care physician, please call the [facility] at [phone] to establish a new primary care physician. While waiting to establish your new primary care physician, you can call our [facility] at [phone] for non-emergency needs. Please return to the emergency department if you develop a severe or sudden change in your symptoms, a fever over 100.4 that does not improve with Tylenol or Ibuprofen, recurrent vomiting, or any other new or worsening symptoms or concerns. Prescriptions: New prednisone 20 mg tablet 60 mg PO DAILY 5 Days Qty: 15 0RF acetaminophen 500 mg capsule 1,000 mg PO .q8 PRN (Reason: fever or pain) Qty: 30 0RF No Action naproxen 375 mg tablet 375 mg PO BID PRN (Reason: pain) Qty: 30 0RF albuterol sulfate [Ventolin HFA] 90 mcg/actuation HFA aerosol inhaler 2 puff inhalation Q6H PRN (Reason: shortness of breath or wheezing) Qty: 6.7 3RF prednisone 10 mg tablet 10 mg PO DAILY Qty: 30 0RF Rx Instructions: Four tablets p.o. q.d. for 3 days then 3 tablets p.o. q.d. for 3 days then 2 tablets p.o. q.d. for 3 days then 1 tablet p.o. q.d. for 3 days baclofen 10 mg tablet 10 mg PO BEDTIME Qty: 20 0RF pravastatin 20 mg tablet 20 mg PO DAILY Qty: 90 3RF Referrals: Emma Wick MD [Primary Care Provider, Internal Medicine] Clinical Impression: Asthma with acute exacerbation Print Language: Ukrainian
[2025-03-16 02:33] LABS: MANUAL DIFF FLAG NO
[2025-03-16 02:36] LABS: Hematocrit 38.7 % (37.0-47.0); Hemoglobin 13.9 g/dl (12.0-16.0); Imm Gran Abs Auto 0.01 X10*3/uL (0.00-0.03); Imm Gran Pct Auto 0.1 % (0.0-0.4); Lymphocytes Absolute Auto 2.3 X10*3/uL (1.2-4.9); Mean Corpuscular HGB Conc 35.9 g/dl (31.0-35.0); Mean Corpuscular Hemoglobin 32.7 pg (27.0-33.0); Mean Corpuscular Volume 91.1 fL (80.0-98.0); NRBC Abs Auto 0.000 X10*3/uL (0.0-0.012); NRBC Pct Auto 0.0 /100WBC (0.0-0.2); Platelet Count 228 X10*3/uL (160-400); Red Blood Count 4.25 X10*6/uL (4.20-5.50); White Blood Count 7.6 X10*3/uL (4.8-10.8)
[2025-03-16] MEDS: Albuterol Sulfate 7.5 MG, Albuterol Sulfate (0.083%) 2.5 MG 10 MG INHALE (02:38)
[2025-03-16 02:39] VITALS: PULSE 89; RESP 18; O2SAT 97
[2025-03-16 02:52] LABS: Alanine Aminotransferase 14 U/L (0-31); Albumin Level 4.1 g/dL (3.5-5.0); Alkaline Phosphatase 129 U/L (39-117); Anion Gap 14 (12-20); Aspartate Amino Transferase 25 U/L (5-31); Blood Urea Nitrogen 13 mg/dL (9-16); Calcium 9.2 mg/dL (8.4-10.2); Carbon Dioxide 24 mmol/L (22-29); Chloride 109 mmol/L (96-108); Creatinine Clr Calc Pharmacy 87.8; Estimated Glomerular Filt Rate > 60; Potassium 3.5 mmol/L (3.3-5.1); Sodium 143 mmol/L (135-145); Total Protein 7.1 g/dL (6.5-8.0)
[2025-03-16 03:12] LABS: Resp Syncy Virus RNA Qual PCR NEGATIVE (Negative); SARS COV2 PCR INHOUSE NEGATIVE (Negative)
[2025-03-16] MEDS: Magnesium Sulfate/H2O 2 GM/50 ML PIGGYBACK IV (03:29)
[2025-03-16 04:39] VITALS: BP 113/73; PULSE 107; RESP 18; TEMP 36.6; O2SAT 99
== END 2025-03-16 04:39 | disposition home or self-care (01) ==
PROVIDERS: Emergency Provider Emergency Medicine; PCP Internal Medicine
DX: J45.901 Unspecified asthma with (acute) exacerbation (principal); R06.02 Shortness of breath; R05.9 Cough, unspecified
CPT/HCPCS: 36415; 71045; 80053; 85025; 87637; 94640; 96365; 96375; 99284; 99285; J1885; J2919; J3475

== ENCOUNTER → 2025-03-16 02:10 | Outpatient (BNV) | payer MEDICARE, MEDICAID, SELFPAY | PROVIDERS: Emergency Provider Emergency Medicine; PCP Internal Medicine; Visit Provider Radiology Diagnostic Radiology | DX: R06.02 Shortness of breath (principal) | CPT/HCPCS: 71045 ==

== ENCOUNTER 2025-03-25 19:31 | Emergency (ER) | payer MEDICARE, MEDICAID, SELFPAY ==
--- NOTE | ~2025-03-25 | XR_ITS ---
CLINICAL HISTORY: fall 4 view right knee Comparison: None provided Findings: No fractures or dislocations. Anterior cruciate ligament reconstruction changes with an endo-button in the lateral distal femur. [id number] tricompartmental joint space narrowing particularly in the patellofemoral joint. Small suprapatellar joint effusion. IMPRESSION: 1. Small suprapatellar joint effusion. 2. No acute fracture or dislocation. This document has been electronically signed by: Brianna Cheatham DO on 03/25/2025 20:49:19
--- NOTE | ~2025-03-25 | XR_ITS ---
CLINICAL HISTORY: fall. twisting Fracture? 3 view left ankle Comparison: None provided Findings: Lucency is identified in the lateral malleolus with overlying soft tissue swelling. No dislocation. Minor arthritic changes. Positive for an ankle effusion. No radiopaque foreign body. IMPRESSION: Nondisplaced fracture in the lateral malleolus. This document has been electronically signed by: Brianna Cheatham DO on 03/25/2025 20:47:03
--- NOTE | ~2025-03-25 | XR_ITS ---
CLINICAL HISTORY: Fall 3 view left foot Comparison: None provided Findings: Bones intact. No dislocations. Normal variant bipartite lateral hallux sesamoid. Mild arthritic changes. No ankle effusion. No radiopaque foreign body. IMPRESSION: No acute fracture or dislocation. This document has been electronically signed by: Brianna Cheatham DO on 03/25/2025 20:48:49
--- NOTE | ~2025-03-25 | XR_ITS ---
CLINICAL HISTORY: fall 2 view left tibia-fibula Comparison: CR - XR KNEE RT 4V - 03/25/25 20:12 EDT CR - XR ANKLE LT MIN 3V - 03/25/25 20:10 EDT Findings Nondisplaced fracture at the inferior tip of the fibula. Better seen on the comparison. There is likely a small ankle effusion. Mild knee degenerative change. No significant ankle degenerative change. Changes of previous anterior cruciate ligament repair. IMPRESSION: Probable ankle effusion. Fracture at the inferior tip of the fibula. This document has been electronically signed by: Yousuf Hood MD on 03/26/2025 02:29:40
[2025-03-25 19:37] VITALS: BP 155/115; PULSE 106; RESP 20; TEMP 36.9; O2SAT 95; BMI 25.7
--- NOTE | 2025-03-25 19:51 | ED.GENADULT ---
HPI - General Adult General Chief complaint: Extremity Injury, Lower Stated complaint: rolled left ankle Time Seen by Provider: 03/26/25 01:20 Source: patient Mode of arrival: wheelchair Limitations: no limitations History of Present Illness ED Provider: Dr. Daniella Carey HPI narrative: Previously healthy 54-year-old female presenting after a trip and fall that occurred immediately prior to arrival. States she was walking on the sidewalk and accidentally rolled her left ankle awkwardly off the pavement. Fell to the side, landing on her right leg. Did not hit her head or lose consciousness. She has had previous surgery to her left ankle and right knee. After the fall she heard a crack and thought that she might have displaced screw. She has a couple of abrasions overlying her knees. She is not sure when her last tetanus shot was. Had been feeling well prior to the fall. No dizziness or chest pain. Denies numbness or weakness of the extremities. Related Data Previous Rx's ?Medication ?Instructions ?Recorded naproxen 375 mg tablet 375 mg PO BID PRN pain #30 tabs 02/12/24 albuterol sulfate 90 mcg/actuation 2 puff inhalation Q6H PRN 02/14/25 aerosol inhaler (Ventolin HFA) shortness of breath or wheezing #6.7 grams baclofen 10 mg tablet 10 mg PO BEDTIME #20 tabs 02/14/25 pravastatin 20 mg tablet 20 mg PO DAILY #90 tabs 02/14/25 prednisone 10 mg tablet 10 mg PO DAILY #30 tabs 02/14/25 acetaminophen 500 mg capsule 1,000 mg (2 x 500 mg) PO .q8 PRN 03/16/25 fever or pain #30 caps prednisone 20 mg tablet 60 mg (3 x 20 mg) PO DAILY 5 days 03/16/25 #15 tabs hydrocodone 5 mg-acetaminophen 325 1 tab PO Q8H PRN pain #10 tabs 03/26/25 mg tablet Allergies Allergy/AdvReac Type Severity Reaction Status Date / Time aspirin (ASPIRIN) Allergy Unknown HIVES Verified 03/25/25 19:39 latex (LATEX) Allergy Unknown HIVES Verified 03/25/25 19:39 valacyclovir (Valtrex) Allergy Unknown Unknown Verified 03/25/25 19:39 Aspir-81 Allergy Unknown Unknown Uncoded 03/25/25 19:39 Review of Systems Review of Systems: as per HPI, full review of systems performed and negative but for the above mentioned pertinent positives and negatives. [facility], LAT[facility] Past Medical History Medical History Annual physical exam Mild asthma Palmoplantar pustulosis Sciatica Bipolar disorder Lumbar spinal stenosis Surgical History Hx of right knee surgery H/O colonoscopy Family History Family History Father No problems noted. Mother No problems noted. Mother Diabetes Breast cancer Social History Social History Housing: Apartment Patient Tobacco Use Status: Current everyday Tobacco user Tobacco use type: Cigarette Cigarettes Per Day: 2 e-Cigarette/Vaping Use: Never Used service: No Current occupational status: disabled Cognitive needs: No Hearing needs: No Vision needs: No Physical Exam ED Exam Exam: GENERAL: Uncomfortable-Appearing, conversant, mild distress due to pain. SKIN: Normal skin color for ethnicity, warm, dry, intact, no rashes noted. HEENT:? Normocephalic, atraumatic, no stridor, airway patent, no raccoon's eyes, no Ramirez sign, dentition intact, EOMI. NECK: Soft, supple, full ROM, midline structures nontender, no step-offs, no deformities, no lymphadenopathy. CHEST: Heart regular rate and rhythm, no murmurs, symmetric chest rise and fall, no crepitus. PULMONARY: Clear to auscultation bilaterally, no labored breathing, no wheezes/rhales/rhonchi. ABDOMINAL: Soft, nondistended, nontender, positive bowel sounds in all quadrants. : Deferred. MUSCULOSKELETAL: Normal tone, full range of motion, left ankle joint effusion at the lateral maleolus, no proximal fibular pain, no crepitus, compartments are soft, no joint effusion of the right knee, small contusion assocaited with superficial abrasions. NEURO: Alert and oriented x3, CN II through XII intact, equal strength and sensation bilateral upper and lower extremities, no focal neurologic deficits.? PSYCHIATRIC: Anxious affect, fluid speech, good eye contact and appropriate demeanor. Vital Signs: Vital Signs - 24 hr 03/26/25 00:57 03/26/25 03:10 03/26/25 03:18 Temperature 97.7 F 97.6 F 97.6 F Pulse Rate 72 73 73 Respiratory Rate 16 18 18 Blood Pressure 128/82 117/80 117/80 Pulse Oximetry 100 98 98 Oxygen Delivery Method Room Air Room Air Room Air BMI result Body Mass Index 25.7 Course Course Course Narrative: RME: 54 yold female presents to the ED for left ankle pain after taking a step and hearing a crack after twisting ankle. patient than fell unto right knee. patient denies hitting head, loss of sconscsoiness, or any other complaints. Xray ordered Medications Administered Discontinued Medications Generic Name Dose Route Start Last Admin Trade Name Freq PRN Reason Stop Dose Admin Diphtheria/Tetanus/Acell Pertussis 0.5 ml 03/26/25 02:46 03/26/25 03:10 Diphth,Pertus(Acell),Tet Adult 0.5 Ml Syringe IM 03/26/25 02:47 0.5 ml .ONCE ONE Administration Oxycodone HCl 5 mg 03/26/25 01:32 03/26/25 01:55 Oxycodone Hcl Immed Release 5 Mg Tablet PO 03/26/25 01:33 5 mg ONCE ONE Administration Medical Decision Making Medical Decision Making [facility] Narrative: Patient presents today with musculoskeletal injury. Differential diagnosis includes fracture, soft tissue contusion, ligamentous injury, tendon injury, infection, laceration, among others. Patient is neurovascularly intact upon arrival to the emergency department. Based on physical exam, appropriate imaging was ordered. Distal fibular fracture seen on XR. No other bony injury. Hardware intact. Provided with walking boot, crutches. Encouraged to follow up with her orthopedist. Using shared decision making, plan for discharge home to follow-up with primary care and/or specialist.? Patient understands and agrees with plan for discharge.? Discharged home in stable condition. Differential Diagnosis Differential Diagnoses: The differential diagnosis associated with the presentation includes (as above) Admission/Observation Consideration of admission/observation: Escalation of care including admission/observation considered Radiology Impression Discussion of test interpretation with radiology: I have reviewed the radiologist's reading. Independent Historian Clinical information obtained from an independent historian. History obtained from or confirmed by: Spouse Prescription Management I considered prescription management with: Pain Medication Discharge Plan Discharge Clinical Impression: Fall from ground level, Closed fracture of distal end of left fibula, Contusion of right knee Patient Disposition: Home, Self-Care Instructions: Ankle Fracture (ED) Additional Instructions: Follow-up with the orthopedic surgeon as soon as possible. Keep the walking boot on while you are up moving around. Return to the ER with any new or worsening symptoms including: Worsening swelling of the foot, worsening pain despite medications, skin changes overlying the injury, any new symptom that concerns you. Prescriptions: New hydrocodone-acetaminophen 5-325 mg tablet 1 tab PO Q8H PRN (Reason: pain) Qty: 10 0RF Rx Instructions: Partial Fill upon patient request. No Action prednisone 20 mg tablet 60 mg PO DAILY 5 Days Qty: 15 0RF acetaminophen 500 mg capsule 1,000 mg PO .q8 PRN (Reason: fever or pain) Qty: 30 0RF naproxen 375 mg tablet 375 mg PO BID PRN (Reason: pain) Qty: 30 0RF albuterol sulfate [Ventolin HFA] 90 mcg/actuation HFA aerosol inhaler 2 puff inhalation Q6H PRN (Reason: shortness of breath or wheezing) Qty: 6.7 3RF prednisone 10 mg tablet 10 mg PO DAILY Qty: 30 0RF Rx Instructions: Four tablets p.o. q.d. for 3 days then 3 tablets p.o. q.d. for 3 days then 2 tablets p.o. q.d. for 3 days then 1 tablet p.o. q.d. for 3 days baclofen 10 mg tablet 10 mg PO BEDTIME Qty: 20 0RF pravastatin 20 mg tablet 20 mg PO DAILY Qty: 90 3RF Referrals: [facility] [Outside, Orthopedics] Clinical Impression: Closed fracture of distal end of left fibula Interventions: ED Discharge Assessment Last Done: 03/26/25 03:18 Discharge Date/Time: 03/26/25 03:19 Print Language: Azeri
[2025-03-26 00:57] VITALS: BP 128/82; PULSE 72; RESP 16; TEMP 36.5; O2SAT 100
[2025-03-26] MEDS: oxyCODONE HCl Immed Release 5 MG TABLET PO (01:55)
[2025-03-26 03:10] VITALS: BP 117/80; PULSE 73; RESP 18; TEMP 36.4; O2SAT 98
[2025-03-26] MEDS: Diphth,Pertus(ACell),Tet Adult 0.5 ML SYRINGE IM (03:10)
[2025-03-26 03:18] VITALS: BP 117/80; PULSE 73; RESP 18; TEMP 36.4; O2SAT 98
== END 2025-03-26 03:19 | disposition home or self-care (01) ==
PROVIDERS: Emergency Provider Emergency Medicine; PCP Internal Medicine
DX: S82.832A Other fracture of upper and lower end of left fibula, initial encounter for closed fracture (principal); S80.211A Abrasion, right knee, initial encounter; W18.30XA Fall on same level, unspecified, initial encounter; Y93.9 Activity, unspecified; Y92.9 Unspecified place or not applicable; Y99.9 Unspecified external cause status; M25.572 Pain in left ankle and joints of left foot; Z23 Encounter for immunization
CPT/HCPCS: 73564; 73590; 73610; 73620; 90471; 90715; 99284

== ENCOUNTER → 2025-03-25 19:50 | Outpatient (BNV) | payer MEDICARE, MEDICAID, SELFPAY | PROVIDERS: Visit Provider Radiology Diagnostic Radiology | DX: M25.461 Effusion, right knee (principal); S82.65XA Nondisplaced fracture of lateral malleolus of left fibula, initial encounter for closed fracture; W19.XXXA Unspecified fall, initial encounter | CPT/HCPCS: 73564; 73610; 73620 ==

== ENCOUNTER → 2025-03-26 01:32 | Outpatient (BNV) | payer MEDICARE, MEDICAID, SELFPAY | PROVIDERS: Emergency Provider Emergency Medicine; PCP Internal Medicine; Visit Provider Radiology Diagnostic Radiology | DX: S82.62XA Displaced fracture of lateral malleolus of left fibula, initial encounter for closed fracture (principal) | CPT/HCPCS: 73590 ==

== ENCOUNTER 2025-04-03 12:37 | Outpatient (AMB) | payer MEDICARE, MEDICAID, SELFPAY ==
[2025-04-03 12:42] VITALS: BP 110/80; PULSE 92; RESP 18; TEMP 37.2; O2SAT 99; BMI 26.9
--- NOTE | 2025-04-03 12:42 | A.OFFPC_ITS ---
Vital Signs 04/03/25 12:42 Height 5 ft 3 in Weight 152 lb BMI 26.9 BP 110/80 Blood Pressure Location Rt brachial Position Sitting Respiration 18 Pulse 92 Pulse Source Pulse Oximeter Temp 98.9 F Temp Source Oral Pulse Oximetry (%) 99 Oxygen Delivery Method Room Air Intake Visit Reasons: Annual PE Intake Note: Pt is here today for PE. Allergies aspirin (ASPIRIN) Allergy (Unknown, Verified 04/03/25 12:44) HIVES latex (LATEX) Allergy (Unknown, Verified 04/03/25 12:44) HIVES valacyclovir (Valtrex) Allergy (Unknown, Verified 04/03/25 12:44) Unknown Aspir-81 Allergy (Unknown, Uncoded 04/03/25 12:44) Unknown Medication List - Last Reconciled 04/03/25 by Emma Wick MD acetaminophen 1,000 mg (2 x 500 mg) PO .q8 PRN albuterol sulfate 90 mcg/actuation (Ventolin HFA) 2 puffs inhalation Q6H PRN baclofen 10 mg PO BEDTIME fluticasone propionate 110 mcg/actuation 2 puffs inhalation BID naproxen 375 mg PO BID PRN pravastatin 20 mg PO DAILY Tobacco use date assessed: 04/03/25 Dental Screening Dental Screen Date: 02/14/25 HPI Annual PE HPI Details Pt presents for PE. Pt twisted her R ankle and sustained inferior tip of fibula fracture 2 weeks ago. She was seen by [facility], has been wearing a immobilizer and will be starting physical therapy. [facility] Medical History (Updated 04/03/25 @ 13:11 by Emma Wick MD) Normal pelvic exam Asthma Hyperlipidemia Annual physical exam Mild asthma Palmoplantar pustulosis Sciatica Bipolar disorder Lumbar spinal stenosis Surgical History (Updated 04/03/25 @ 13:11 by Emma Wick MD) Hx of right knee surgery H/O colonoscopy Family History Father No problems noted. Mother No problems noted. Mother Diabetes Breast cancer Social History Housing: Apartment Patient Tobacco Use Status: Current everyday Tobacco user Tobacco use type: Cigarette Cigarettes Per Day: 2 e-Cigarette/Vaping Use: Never Used service: No Current occupational status: disabled Cognitive needs: No Hearing needs: No Vision needs: No Questionnaire Thrive Questionnaire Date Thrive assessed: 02/14/25 I am a: Patient What is your living situation today?: I have a steady place to live Within the past 12 months, did the food you bought not last and you didn't have the money to get more?: Never true Within the past 12 months, did you worry whether your food would run out before you got money to buy more?: Never true Do you have trouble paying for medicines?: No Do you have trouble getting transportation to medical appointments?: Yes Do you have trouble paying your heating and electricity bill?: No Do you have trouble taking care of your child, family member or friend?: No Do you have trouble with day-to-day activities such as bathing, preparing meals, shopping, managing finances, etc.?: Yes Are you currently unemployed and looking for a job?: No Are you interested in more education?: No Please select the resources that you would like help with: None Currently or been in a relationship where the following occur: No concerns reported THRIVE Score: 1 LEEROY-7 AMB Questionnaire LEEROY-7 Date LEEROY - 7 assessed: 02/14/25 Source: Developed by Drs. Winston Mclaughlin, Sonia Cast, Kojo Clement and colleagues, with an educational prabhjot from [email or web address]. Review of Systems Const All systems reviewed & are unremarkable except as noted in HPI and below Eyes Reports no additional complaints ENT Reports no additional complaints Card Reports no additional complaints Resp Reports no additional complaints GI Reports no additional complaints Reports no additional complaints Physical exam (Primary Care) Vital Signs: Last Vital Signs Temp 98.9 F 04/03/25 12:42 Pulse 92 04/03/25 12:42 Resp 18 04/03/25 12:42 BP 110/80 04/03/25 12:42 Pulse Ox 99 04/03/25 12:42 Oxygen Delivery Method Room Air 04/03/25 12:42 BMI result Body Mass Index 26.9 Tobacco/Smoking Status: Tobacco use Status Tobacco use date assessed 04/03/25 04/03/25 12:50 Patient Tobacco Use Status Current everyday Tobacco 04/03/25 12:50 Tobacco use type Cigarette 04/03/25 12:50 e-Cigarette/Vaping Use Never Used 04/03/25 12:50 Thrive Assessment: Date of Thrive Assessment Date Thrive assessed 02/14/25 04/03/25 12:50 Currently or been in a relationship where the following occur: No concerns reported Const General: no acute distress HENMT Head: Yes normal to inspection General nose exam: Normal external nose present Face and sinus: Yes normal facial exam Mouth: Normal oral and palatal mucosa present Eyes General: appearance normal, both eyes and all related structures Neck Neck: Yes no lymphadenopathy and Yes supple Resp Effort & Inspection: normal respiratory effort Auscultation: clear to auscultation bilaterally Cardio Rhythm: regular rhythm Heart sounds: S1 normal heart sound present and S2 normal heart sound present GI Inspection: Yes normal to inspection Palpation (GI): Soft to palpation Percussion: Yes normal to percussion Auscultation: normal bowel sounds Coding Level of Care Code Est Pt Prev Care 40-64y(68064) Diagnoses Annual physical exam Z00.00 Hyperlipidemia E78.5 Asthma J45.909 Assessment & Plan Assessment & Plan (1) Annual physical exam: Code(s): Z00.00 - Encounter for general adult medical examination without abnormal findings Category: Medical Plan: Well-balanced diet regular physical activity discussed with the patient. She is up-to-date with the mammogram at [facility] and will schedule an appointment with consultants intern. Patient declined colonoscopy Cologuard will be checked. (2) Hyperlipidemia: Code(s): E78.5 - Hyperlipidemia, unspecified Category: Medical Plan: Continue pravastatin , return for fasting blood work in 3 months (3) Asthma: Code(s): J45.909 - Unspecified asthma, uncomplicated Category: Medical Plan: Patient has been using albuterol inhaler more than twice a week, fluticasone inhaler 110 mcg 2 puffs twice a day will be started, tobacco quitting discussed with the patient Orders: Orders Lipid Panel 3 Months E78.5 - Hyperlipidemia, unspecified, J45.909 - Unspecified asthma, uncomplicated, Z00.00 - Encounter for general adult medical examination without abnormal findings Comprehensive Strong. Panel Fast 3 Months E78.5 - Hyperlipidemia, unspecified, J45.909 - Unspecified asthma, uncomplicated, Z00.00 - Encounter for general adult medical examination without abnormal findings Vitamin D 25-OH Total 3 Months E78.5 - Hyperlipidemia, unspecified, J45.909 - Unspecified asthma, uncomplicated, Z00.00 - Encounter for general adult medical examination without abnormal findings Complete Blood Count Auto Diff 3 Months E78.5 - Hyperlipidemia, unspecified, J45.909 - Unspecified asthma, uncomplicated, Z00.00 - Encounter for general adult medical examination without abnormal findings Referrals Cologuard Test Z12.11 - Encounter for screening for malignant neoplasm of colon, Z12.12 - Encounter for screening for malignant neoplasm of rectum Medications: New fluticasone propionate 110 mcg/actuation 2 puffs inhalation BID 12 grams 3RF
== END 2025-04-03 13:15 | disposition home or self-care (01) ==
LOC: HO.HMCC 12:38
PROVIDERS: PCP Internal Medicine; Visit Provider Internal Medicine
DX: Z00.00 Encounter for general adult medical examination without abnormal findings (principal); E78.5 Hyperlipidemia, unspecified; J45.909 Unspecified asthma, uncomplicated

== ENCOUNTER → 2025-04-03 12:37 | Outpatient (BNVA) | payer MEDICARE, MEDICAID, SELFPAY | PROVIDERS: PCP Internal Medicine; Visit Provider Internal Medicine | DX: Z00.00 Encounter for general adult medical examination without abnormal findings (principal); E78.5 Hyperlipidemia, unspecified; J45.909 Unspecified asthma, uncomplicated | CPT/HCPCS: 99396 ==